=== PATIENT | female | born 1960 | race Caucasian/White ===

== ENCOUNTER 2016-11-26 18:51 | Emergency (ER) | payer MEDICARE ==
[~2016-11-26] VITALS: Ht 152.4 cm; Wt 65.9 kg
[~2016-11-26 18:51] MED LIST: BACL10TA PO; BISA10SU61 RC; ESTR2TAB2 PO; FURO-128 PO; GABA-502 PO; IBUP800T28 PO; LEVO100T97 PO; OXYC-284 PO; POTA-62 PO; PRAM0.252 PO; PROZ20 PO; SIMV40TA5 PO; [UNRECOGNIZED DRUG - CODE] SQ
[2016-11-26 18:58] VITALS: BP 121/76; PULSE 63; RESP 15; O2SAT 98
[2016-11-27] MEDS ORDERED: OXYC-407 PO (08:29)
[2016-11-27] MEDS ORDERED: BUPR100T8 PO (08:31)
[2016-11-27] MEDS ORDERED: DEXT10TA23 PO (08:31)
== END 2016-11-26 22:15 | disposition left against medical advice (07) ==
LOC: SED 18:51
DX: Z53.21 Procedure and treatment not carried out due to patient leaving prior to being seen by health care provider (principal)

== ENCOUNTER 2016-11-27 00:28 | Observation (INO) | payer MEDICARE ==
[~2016-11-27] VITALS: Ht 152.4 cm; Wt 67.0 kg
[2016-11-27] VITALS (11 sets, daily range): BP systolic 106–149; BP diastolic 66–81; PULSE 51–63; RESP 15–17; O2SAT 94–98
[2016-11-27 00:55] LABS: BASOPHILS % (AUTO) 0.3 % (0-3); EOSINOPHILS % (AUTO) 5.9 % (0-5); MONOCYTES % (AUTO) 11.4 % (4-12); Mean Corpuscular Hemoglobin 30.5 pg (27.0-35.0); Mean Corpuscular Volume 87.1 fL (81-100); NEUTROPHILS % (AUTO) 36.3 % (40-74); Platelet Count 311 bil/L (150-400)
--- NOTE | 2016-11-27 02:01 | ED.REPORT ---
HPI-General Illness Date of Service Nov 27, 2016 ED Provider: Doc,Ed MD Nursing Notes Stated Complaint: DIZZINESS Chief Complaint: General Complaint Allergies: Coded Allergies: Penicillins (Verified Allergy, Unknown, HIVES,HEADACHE, 05/10/14) meperidine HCl (Verified Allergy, Unknown, 05/10/14) Scheduled Baclofen (Baclofen) 10 Mg Tablet 10 MG PO 1 in am,2 in pm,3@hs Estradiol (Estradiol) 2 Mg Tablet 2 MG PO DAILY Fluoxetine (Prozac) 20 Mg Cap 20 MG PO DAILY take 20mg in the afternoon and 20mg at bedtime for a total of 40mg Gabapentin (Gabapentin) 300 Mg Capsule 300 MG PO 1 in am,2 in pm,1@hs Interferon Beta-1B (Betaseron) 0.3 Mg Kit 0.3 MG SQ every other day Levothyroxine (Synthroid) 100 Mcg Tablet 112 MCG PO DAILY Potassium Chloride ER (Potassium Chloride ER) 20 Meq Tablet.er 20 MEQ PO BID PRN with Lasix Take when you are taking with lasix and TAKE WITH FOOD Pramipexole Dihydrochloride (Mirapex) 0.25 Mg Tablet 0.5 MG PO 2 hrs before bedtime Simvastatin (Simvastatin) 40 Mg Tablet 40 MG PO HS Scheduled PRN Bisacodyl (Dulcolax Rectal) 10 Mg Supp.rect 10 MG RC DAILY PRN PRN For Constipation Furosemide (Lasix) 40 Mg Tablet 80 MG PO PRN PRN PRN Swelling Ibuprofen (Ibuprofen) 800 Mg Tablet 800 MG PO TID PRN PRN For Pain Oxycodone HCl/Acetaminophen 5-325 (Percocet 5-325) 1 Each Tablet 2 EACH PO HS PRN PRN knee pain General Time Seen by MD: 02:00 Past Medical History Past Medical History Uterine prolapse Rheumatoid Arthritis Reports: Hyperlipidemia Smoking History Current Every Day Smoker Physical Exam Vital Signs Vital Signs Date Time Temp Pulse Resp B/P Pulse Ox O2 Delivery O2 Flow Rate FiO2 11/27/16 00:30 36.7 63 15 121/76 98 Room Air Interpretation & Diagnostics Lab Results Interpretation Result Diagram: 11/27/16 0048 11/27/16 0048 Test 11/27/16 00:48 White Blood Count 9.4th/mm3 (3.8-10.1) Red Blood Count 4.03mil/mm3 (3.90-5.20) Hemoglobin 12.3g/dL (12.0-15.6) Hematocrit 35.1% (35.0-46.0) Mean Corpuscular Volume 87.1fL (81-100) Mean Corpuscular Hemoglobin 30.5pg (27.0-35.0) Mean Corpuscular Hemoglobin Concent 35.0% (32.0-37.0) Red Cell Distribution Width 13.5% (12.3-15.4) Platelet Count 311bil/L (150-400) Neutrophils (%) (Auto) 36.3% (40-74) Lymphocytes (%) (Auto) 45.8% (14-46) Monocytes (%) (Auto) 11.4% (4-12) Eosinophils (%) (Auto) 5.9% (0-5) Basophils (%) (Auto) 0.3% (0-3) Hold Purple Top Tube Received (Received) Hold Blue Top Tube Received (Received) Sodium Level 141mEq/L (134-144) Potassium Level 2.7mEq/L (3.5-5.2) Chloride Level 104mEq/L (97-108) Carbon Dioxide Level 21mmol/L (18-29) Blood Urea Nitrogen 30mg/dL (6-24) Creatinine 1.23mg/dL (0.57-1.00) Estimat Glomerular Filtration Rate 64mL/min (>59) Glucose Level 90mg/dL (60-99) Calcium Level 8.9mg/dL (8.5-10.1) Total Bilirubin 0.2mg/dL (0.0-1.2) Aspartate Amino Transf (AST/SGOT) 14U/L (0-50) Alanine Aminotransferase (ALT/SGPT) 28U/L (0-32) Alkaline Phosphatase 108U/L (25-150) Total Protein 7.3g/dL (6.4-8.4) Albumin 3.9g/dL (3.4-5.0) Hold [place] Top Tube Received (Received) Hold [place] Top Tube Received (Received) Discharge & Departure Referrals: Radha Cee MD (PCP) Reymundo Magdaleno DO Nov 27, 2016 02:01
--- NOTE | 2016-11-27 02:13 | ED.REPORT ---
HPI-General Illness Date of Service Nov 27, 2016 ED Provider: Rahul Nelson MD The pt is a 56 y/o female w/ a hx of MS presenting to the ED complaining of increasing weakness. She also reports falling and hitting her head causing her to receive a black eye. She reports being able to walk a week ago but being unable to now, as well as being more weak on the L side compared to the R. The pt is experiencing a cough that produces clear fluids but denies fever, chills, vomiting or diarrhea. Nursing Notes Stated Complaint: DIZZINESS Chief Complaint: General Complaint Nursing Notes Reviewed: Yes Allergies: Coded Allergies: Penicillins (Verified Allergy, Unknown, HIVES,HEADACHE, 05/10/14) meperidine HCl (Verified Allergy, Unknown, 05/10/14) Scheduled Baclofen (Baclofen) 10 Mg Tablet 10 MG PO 1 in am,2 in pm,3@hs Bupropion ER (Bupropion ER) 100 Mg Tablet.er 100 MG PO DAILY Dextroamphetamine/Amphetamine (Amphetamine Mixed Salts) 10 Mg Tablet 10 MG PO DAILY Estradiol (Estradiol) 2 Mg Tablet 2 MG PO DAILY Fluoxetine (Prozac) 20 Mg Cap 20 MG PO BID take 20mg in the afternoon and 20mg at bedtime for a total of 40mg Gabapentin (Gabapentin) 300 Mg Capsule 300 MG PO 1 in am,2 in pm,1@hs Interferon Beta-1B (Betaseron) 0.3 Mg Kit 0.3 MG SQ every other day Levothyroxine (Synthroid) 100 Mcg Tablet 112 MCG PO DAILY Pramipexole Dihydrochloride (Mirapex) 0.25 Mg Tablet 0.5 MG PO 2 hrs before bedtime Simvastatin (Simvastatin) 40 Mg Tablet 40 MG PO HS Scheduled PRN Bisacodyl (Dulcolax Rectal) 10 Mg Supp.rect 10 MG RC DAILY PRN PRN For Constipation Furosemide (Lasix) 40 Mg Tablet 80 MG PO PRN PRN PRN Swelling Ibuprofen (Ibuprofen) 800 Mg Tablet 800 MG PO TID PRN PRN For Pain Oxycodone HCl/Acetaminophen 5-325 (Endocet 5-325) 1 Each Tablet 2 TABLET PO HS PRN PRN For Pain General Time Seen by MD: 02:13 Chief Complaint Weakness Hx Obtained From: Patient Sudden in Onset?: Yes Onset Occurred: 1 week ago Symptom Duration: Since onset Recent Healthcare: No recent hospitalization, Recent doctor visit Similar Sx Previous: Yes Past Medical History Past Medical History Uterine prolapse Rheumatoid Arthritis Reports: Hyperlipidemia Past Surgical History None reported Smoking History Current Every Day Smoker Ambulatory Status Independent Review of Systems Bruising around L eye Full Review of Systems Respiratory: Reports: Prod cough, clear GI: Denies: Diarrhea, Vomiting Neurologic: Reports: Weakness (L worse than R ) Physical Exam Vital Signs Vital Signs Date Time Temp Pulse Resp B/P Pulse Ox O2 Delivery O2 Flow Rate FiO2 11/27/16 00:30 36.7 63 15 121/76 98 Room Air Initial VS: Reviewed Head / Eyes: Atraumatic, Normocephalic, PERRL ENT: Mucous membranes moist, Conjunctiva normal, No scleral icterus Neck: Supple, Non-tender, Full range of motion Cardiovascular: Regular rate & rhythm, Heart sounds normal, Intact distal pulses Abdomen / GI: Soft, Non-tender, No guarding, No rebound, No distention Extremities: Vascular intact, Neuro intact, No swelling, No tenderness Skin: Warm, Dry, No cyanosis General/Constitutional: Awake, Alert Appearance / Presentation: Positive: Ill appearing/not toxic Respiratory / Chest: Breath sounds NL, Breath sounds = bilat Poor respiratory effort generally Neurologic: Oriented X3, Speech NL Mild L weakness compared to R Interpretation & Diagnostics Lab Results Interpretation Result Diagram: 11/27/16 0048 11/27/16 0048 Test 11/27/16 00:48 White Blood Count 9.4th/mm3 (3.8-10.1) Red Blood Count 4.03mil/mm3 (3.90-5.20) Hemoglobin 12.3g/dL (12.0-15.6) Hematocrit 35.1% (35.0-46.0) Mean Corpuscular Volume 87.1fL (81-100) Mean Corpuscular Hemoglobin 30.5pg (27.0-35.0) Mean Corpuscular Hemoglobin Concent 35.0% (32.0-37.0) Red Cell Distribution Width 13.5% (12.3-15.4) Platelet Count 311bil/L (150-400) Neutrophils (%) (Auto) 36.3% (40-74) Lymphocytes (%) (Auto) 45.8% (14-46) Monocytes (%) (Auto) 11.4% (4-12) Eosinophils (%) (Auto) 5.9% (0-5) Basophils (%) (Auto) 0.3% (0-3) Hold Purple Top Tube Received (Received) Hold Blue Top Tube Received (Received) Sodium Level 141mEq/L (134-144) Potassium Level 2.7mEq/L (3.5-5.2) Chloride Level 104mEq/L (97-108) Carbon Dioxide Level 21mmol/L (18-29) Blood Urea Nitrogen 30mg/dL (6-24) Creatinine 1.23mg/dL (0.57-1.00) Estimat Glomerular Filtration Rate 64mL/min (>59) Glucose Level 90mg/dL (60-99) Calcium Level 8.9mg/dL (8.5-10.1) Magnesium Level 2.4mg/dL (1.6-2.6) Total Bilirubin 0.2mg/dL (0.0-1.2) Aspartate Amino Transf (AST/SGOT) 14U/L (0-50) Alanine Aminotransferase (ALT/SGPT) 28U/L (0-32) Alkaline Phosphatase 108U/L (25-150) Total Protein 7.3g/dL (6.4-8.4) Albumin 3.9g/dL (3.4-5.0) Hold [place] Top Tube Received (Received) Hold [place] Top Tube Received (Received) X-Ray Chest Interpretation Chest Xray Interpretation: Impression: No acute findings View: Portable, 1 view Interpretation / Wet Read by: Wet read ED physician CT Head Interpretation COnclusion: Chronic L basal ganglia encephalomalacia. Otherwise normal exam. No acute intracranial abnormality. This report was transmitted to the emergency room at 11/27/16 - 3:07:41 AM PDT. Study: Head CT no contrast Interpretation / Wet Read by: Interpret - Radiologist Re-Eval/Medical Decision Med Decision/Clinical Course 56-year-old multiple sclerosis presents with increasing weakness on the left side, loss of ambulation, and incidental hypokalemia. She has had hypokalemia in the past. She is unable ambulate at this point and is admitted for evaluation including MR of the brain this morning. Oral supplementation of potassium preferred to avoid burning her veins out, as her level is low but certainly not critically so. Transported in stable condition. Source of Hx: Old records Consultation : Referral / Consult Name: Ruthann Mahoney MD Consulted With: Hospitalist Call Returned at: 03:00 Manager Of Product: Will see patient, Agrees with eval, Agrees with plan, Accepts admit Counseled Regarding: Diagnosis, Lab results, Need for admission Discharge & Departure Primary Impression: Multiple falls Additional Impressions: Weakness Hypokalemia Exacerbation of multiple sclerosis Disposition: ADMITTED TO HOSPITAL Discharge Condition All VS Reviewed: Yes Condition: Stable Referrals: Radha Cee MD (PCP) Scrib[facility] Attestation Portions of this note were transcribed by Michael Carmichael. I, Dr. Nelson personally performed the history, physical exam and medical decision-making; I reviewed and confirmed the accuracy of the information in the transcribed note. Signed by : Dyan Blair, 11/27/16 and 0324. copies to: Radha Cee MD, Christopher W MD Nov 27, 2016 02:13 Michael Carmichael Nov 27, 2016 03:21
[2016-11-27] MEDS ORDERED: Potassium Chloride 20 mEq SR Tablet PO ONE (02:35)
[2016-11-27] MEDS ORDERED: Ondansetron 2 mg/mL 2 mL Inj IVPUSH PRN (03:45)
[2016-11-27] MEDS ORDERED: Potassium Chloride Inj 20 MEQ in Dextrose 5% 250 ML IV ONE (03:45)
[2016-11-27] MEDS ORDERED: Alum-Mag Hydrox-Simeth 30 mL Suspension PO PRN (03:45)
[2016-11-27] MEDS ORDERED: Polyethylene Glycol (PEG) 17 Gm Powder PO PRN (03:45)
--- NOTE | 2016-11-27 03:58 | PCM.HPMED ---
Subjective Date of Service Nov 27, 2016 Primary Provider: Admitting Physician: Primary Care Physician: Radha Cee MD Attending Physician: Admit Status: From the Emergency Department, Full Admit, Non-Telemetry Chief Complaint: Increasing weakness with history of multiple sclerosis History of Present Illness: This 56-year-old female who has a history of MS and has been having increasing weakness over the past several weeks. Weaker on the left than the right. She notes that she has been off falling because of this. She does live with her but is unable to get around at this point in time. Her neurologist is Dr. Mandie Hernández. Patient was also found to have low potassium at 2.7. She also had CT of head without contrast which revealed chronic left basal ganglia encephalomalacia otherwise no acute intracranial abnormalities. Review of Systems: Denies chest pain denies any fevers or chills. All other review of systems are reviewed and are negative except for as in history of present illness. Allergies Coded Allergies: Penicillins (Verified Allergy, Unknown, HIVES,HEADACHE, 05/10/14) meperidine HCl (Verified Allergy, Unknown, 05/10/14) Home Medications Scheduled Baclofen (Baclofen) 10 Mg Tablet 10 MG PO 1 in am,2 in pm,3@hs Estradiol (Estradiol) 2 Mg Tablet 2 MG PO DAILY Fluoxetine (Prozac) 20 Mg Cap 20 MG PO DAILY take 20mg in the afternoon and 20mg at bedtime for a total of 40mg Gabapentin (Gabapentin) 300 Mg Capsule 300 MG PO 1 in am,2 in pm,1@hs Interferon Beta-1B (Betaseron) 0.3 Mg Kit 0.3 MG SQ every other day Levothyroxine (Synthroid) 100 Mcg Tablet 112 MCG PO DAILY Potassium Chloride ER (Potassium Chloride ER) 20 Meq Tablet.er 20 MEQ PO BID PRN with Lasix Take when you are taking with lasix and TAKE WITH FOOD Pramipexole Dihydrochloride (Mirapex) 0.25 Mg Tablet 0.5 MG PO 2 hrs before bedtime Simvastatin (Simvastatin) 40 Mg Tablet 40 MG PO HS Scheduled PRN Bisacodyl (Dulcolax Rectal) 10 Mg Supp.rect 10 MG RC DAILY PRN PRN For Constipation Furosemide (Lasix) 40 Mg Tablet 80 MG PO PRN PRN PRN Swelling Ibuprofen (Ibuprofen) 800 Mg Tablet 800 MG PO TID PRN PRN For Pain Oxycodone HCl/Acetaminophen 5-325 (Percocet 5-325) 1 Each Tablet 2 EACH PO HS PRN PRN knee pain PMH Past Medical History Past Medical History Uterine prolapse Rheumatoid Arthritis Reports: Hyperlipidemia Past Surgical History None reported Family History She denies any familial history of MS. Social History Hx Alcohol Use: No Hx Substance Use: No Smoking Status: Current Every Day Smoker Living Arrangement: with Family Exam Vital Signs Vital Sign - Last Date Time Temp Pulse Resp B/P Pulse Ox O2 Delivery O2 Flow Rate FiO2 11/27/16 00:30 36.7 63 15 121/76 98 Room Air Exam Constitutional: Slightly disheveled female who is slightly drowsy Head: Slight contusion on her left orbital area Eyes: PERRLA DC EOMI mouth dry mucosa neck no adenopathy chest clear to auscultation Cor: Regular rate and rhythm S1-S2 without murmur Abdomen: Soft nontender bowel sounds present Extremities: Trace bilateral pedal edema Skin: No rashes Psych: Blunted affect Neuro: Alert and oriented 3. Lower extremities are 4 over 5 strength. Gait not tested. Lab and Diagnostics Labs Laboratory Tests 72 Hours Test 11/27/16 00:48 White Blood Count 9.4th/mm3 (3.8-10.1) Red Blood Count 4.03mil/mm3 (3.90-5.20) Hemoglobin 12.3g/dL (12.0-15.6) Hematocrit 35.1% (35.0-46.0) Mean Corpuscular Volume 87.1fL (81-100) Mean Corpuscular Hemoglobin 30.5pg (27.0-35.0) Mean Corpuscular Hemoglobin Concent 35.0% (32.0-37.0) Red Cell Distribution Width 13.5% (12.3-15.4) Platelet Count 311bil/L (150-400) Neutrophils (%) (Auto) 36.3% (40-74) Lymphocytes (%) (Auto) 45.8% (14-46) Monocytes (%) (Auto) 11.4% (4-12) Eosinophils (%) (Auto) 5.9% (0-5) Basophils (%) (Auto) 0.3% (0-3) Hold Purple Top Tube Received (Received) Hold Blue Top Tube Received (Received) Sodium Level 141mEq/L (134-144) Potassium Level 2.7mEq/L (3.5-5.2) Chloride Level 104mEq/L (97-108) Carbon Dioxide Level 21mmol/L (18-29) Blood Urea Nitrogen 30mg/dL (6-24) Creatinine 1.23mg/dL (0.57-1.00) Estimat Glomerular Filtration Rate 64mL/min (>59) Glucose Level 90mg/dL (60-99) Calcium Level 8.9mg/dL (8.5-10.1) Magnesium Level 2.4mg/dL (1.6-2.6) Total Bilirubin 0.2mg/dL (0.0-1.2) Aspartate Amino Transf (AST/SGOT) 14U/L (0-50) Alanine Aminotransferase (ALT/SGPT) 28U/L (0-32) Alkaline Phosphatase 108U/L (25-150) Total Protein 7.3g/dL (6.4-8.4) Albumin 3.9g/dL (3.4-5.0) Hold [place] Top Tube Received (Received) Hold [place] Top Tube Received (Received) Result Diagram: 11/27/16 0048 11/27/16 0048 Assessment & Plan #MS exacerbation, present on admission, subacute -Check MRI of brain with contrast -PT OT and social work program coordinator consultation -WILL NEED TO CONTACT NEUROLOGY FOR CONSULT IN AM #Hypokalemia, acute, present on admission -Replete with IV potassium rider was 20 mEq and also replete with IV fluids normal saline with 20 mEq per liter of KCl. #Depression, chronic, present on admission -Continue home medication regimen #Hypothyroidism, chronic -Continue home medication regimen #DVT prophylaxis -Subcutaneous prophylactic Lovenox #CODE STATUS -Patient is full code VTE Prophylaxis: Sub-Q Enoxaparin Resuscitation Status: CPR: Attempt Resuscitation Time spent 60 minutes Ruthann Mahoney MD Nov 27, 2016 03:58
[2016-11-27] MEDS ORDERED: oxyCODONE-Acetamin 5-325 mg Tablet PO PRN (04:00)
[2016-11-27] MEDS ORDERED: Potassium Chloride 20 mEq SR Tablet PO PRN (04:20)
[2016-11-27] MEDS: 0.9% NaCl + KCl 20 mEq/L 1,000 ML IV SCH ×2 (06:29→17:53)
--- NOTE | 2016-11-27 06:31 | NUR ---
Admit Pt arrived to [facility] via ED @ 0545. Pt able to walk to bathroom with 1PA. Pt A&O x3 and able to PRADO admission completed but not med rec. Pt c/o of headache 12/23, 650 PRN Tylenol given and effective, pt able to rest. Pt started on NS with 20 mEq of K+20. VSS.
[2016-11-27] MEDS ORDERED: OXYC-407 PO (08:29)
[2016-11-27] MEDS ORDERED: BUPR100T8 PO (08:31)
[2016-11-27] MEDS ORDERED: DEXT10TA23 PO (08:31)
--- NOTE | 2016-11-27 11:49 | DRSVH ---
PROCEDURE: X-RAY CHEST ONE VIEW, PORTABLE ([id number]) INDICATIONS: cough, MULTIPLE SCLEROSIS TECHNIQUE: One view of the chest was acquired. COMPARISON: [facility], , CHEST 1VW (PORTABLE), 11/07/2013, 10:06. FINDINGS: Surgical changes and devices: None. Lungs and pleura: No pleural effusions or pneumothorax. Since the previous x-ray in 2013 is suggesti on of some patchy infiltrate in the right base consistent with pneumonia. Mediastinum: Mediastinal contours appear normal. Heart size is normal. Bones and chest wall: No suspicious bony lesions. Overlying soft tissues appear unremarkable. IMPRESSION: Right lower lobe pneumonia is thought to be present. Dictated by: Juan Perez M.D. on 11/27/2016 at 11:46 Approved by: Juan Perez M.D. on 11/27/2016 at 11:46
--- NOTE | 2016-11-27 11:50 | DRSVH ---
PROCEDURE: CT BRAIN WITHOUT CONTRAST ([id number]) INDICATIONS: MS, mult falls TECHNIQUE: Noncontrast 4.5 mm thick angled axial sections acquired from the foramen magnum to the vertex, with c oronal reformats. COMPARISON: [facility], CT, BRAIN W/O CONTRAST, 11/07/2013, 10:34. FINDINGS: Image quality: Excellent. CSF spaces: Basal cisterns are patent. No extra-axial fluid collections. Ventricles are normal in size and shape. Brain: No midline shift. No intracranial masses or hemorrhage. Vasques-white matter interface is norm al. Since the previous CT there is developing moderate sized lacunar type infarct in the left basal g anglia approximately 16 x 6 mm size. Skull and face: Calvarium and visualized facial bones are intact, without suspicious lesions. Sinuses: Visualized sinuses and mastoids are clear. IMPRESSION: 1. No acute intracranial abnormality. 2. Since the previous study there is now a moderate-sized lacunar infarct in the left basal ganglia. Dictated by: Juan Perez M.D. on 11/27/2016 at 11:47 Approved by: Juan Perez M.D. on 11/27/2016 at 11:48
--- NOTE | 2016-11-27 11:52 | DRSVH ---
PROCEDURE: MRI MULTIPLE SCLEROSIS BRAIN WITH AND WITHOUT CONTRAST ([id number]) INDICATIONS: MS exacerbation TECHNIQUE: Noncontrast sagittal and axial FLAIR, axial and coronal T2 fast spin echo, axial VIBE, axial gradient echo, axial diffusion and ADC through the brain. After the administration of contrast, axial and co michel VIBE with fat saturation through the brain. COMPARISON: [facility], CT, CT BRAIN WO CON, 11/27/2016, 2:54. [facility], M R, MR MS BRAIN W&WO CON, 08/30/2016, 20:25. FINDINGS: Image quality: Excellent. CSF spaces: Ventricles are normal in size and shape. Basal cisterns are patent. No extra-axial flu id collections. Brain: No intracranial mass effects. Vasques-white matter interface appears intact. No new suspicious white matter lesions are found, and there is no sign of abnormal enhancement associated with these a reas of elevated T2/flair signal seen within the corpus callosum, periventricular white matter, and w ithin the subcortical white matter. No mass lesion is present, no hemorrhage is found. No abnormal intracranial enhancement. Diffusion weighted images show no acute ischemic insults, and stable appea ring encephalomalacia within the douglas radiata of the left hemisphere is again seen. Brainstem appe ars normal. Normal intravascular flow voids are present. Skull and face: Calvarial marrow signal is normal. Orbits appear normal. Sinuses: Sinuses and mastoids are clear. IMPRESSION: The brain MRI without and with contrast shows no evidence of acute disease. No stroke o r new white matter lesion is found. No abnormal area of enhancement or evidence of hemorrhage is see n. Source of new symptoms therefore is not identified. Old area of encephalomalacia within the coby na radiata of the left hemisphere is likely secondary to a prior chronic stroke but this has not amin ged in appearance over time. Dictated by: Jerald Moon M.D. on 11/27/2016 at 11:45 Approved by: Jerald Moon M.D. on 11/27/2016 at 11:50
[2016-11-27 13:30] LABS: APPEARANCE,URINE CLEAR (CLEAR,HAZY); COLOR,URINE YELLOW (YELLOW); OCCULT BLOOD,URINE NEGATIVE (NEGATIVE); UROBILINOGEN,URINE NORMAL (NORMAL)
--- NOTE | 2016-11-27 14:26 | NUR ---
STEWART explained to pt and her who is at bedside. STEWART signed, copy of STEWART and Medicare self administered medication information given to pt.
--- NOTE | 2016-11-27 14:35 | NUR ---
Evaluation completed. Please go to "Notes" then click on "Assessments and Notes" (bottom left corner of screen). Then select appropriate discipline tab on top of screen.
[2016-11-27] MEDS: Potassium Chloride 20 mEq SR Tablet PO SCH ×2 (15:18→21:01)
--- NOTE | 2016-11-27 21:56 | NUR ---
Discharge Patient stated she would like to be discharged in the morning. Patient was informed that she should first make sure her physician clears her to leave so that her insurance will cover her visit. Patient stated she understood and would speak with the physician prior to leaving in the morning.
--- NOTE | 2016-11-27 23:27 | PCM.PNMED ---
Subjective Date of Service Nov 27, 2016 Subjective The patient is beginning to feel a bit better. She has no new complaints. Exam Vital Signs Vital Sign - Last Date Time Temp Pulse Resp B/P Pulse Ox O2 Delivery O2 Flow Rate FiO2 11/27/16 20:45 36.7 55 16 118/73 97 Room Air Intake and Output 11/26/16 11/26/16 11/27/16 Cumulative From/Thru 15:00 23:00 07:00 11/27/16 00:30 - 11/27/16 06:17 Intake Total 260 ml 260 ml Output Total 300 ml 300 ml Balance -40 ml -40 ml Intake Oral 0 ml 0 ml IV Total 260 ml 260 ml Output Urine Total 300 ml 300 ml # Bowel Movements 0 0 Exam General: The patient is lying supine in bed with head elevated up proximal to 45 and in no apparent distress. HEENT: Head is atraumatic and normocephalic. Eyes: Pupils are equally round and reactive to light and accommodation. Extraocular muscles are intact. Sclera are white, anicteric. Subconjunctival mucosa is pink. Ears and nose are unremarkable. Oropharynx: There is no mucosal lesions, there is no thrush, there is no pharyngitis. Neck: Is supple, there are no nodes, or masses or tenderness. Chest: Is clear to auscultation and percussion. There are no rales, rhonchi, wheezes or rubs. Heart: Rate, rhythm is regular. There is no murmur, rub or gallop. Abdomen: Good bowel sounds are present. Abdomen is soft, nontender, no organomegaly or masses were appreciated. Extremities: Are symmetrical and well perfused. There is no edema, there is no cellulitis, no rash. Neurologic: There are no focal neurological deficits. Cranial nerves II through XII are intact. There are no sensory or motor deficits. There appears to be generalized weakness. Psychiatric: Patients mood is calm and shows no sign of agitation. Genital: Deferred Rectal: Deferred Lab and Diagnostics Result Diagram: 11/27/16 0048 11/27/16 1145 Microbiology Urine culture is pending X-Rays, CTs and MRIs PROCEDURE: MRI MULTIPLE SCLEROSIS BRAIN WITH AND WITHOUT CONTRAST ([id number]) INDICATIONS: MS exacerbation TECHNIQUE: Noncontrast sagittal and axial FLAIR, axial and coronal T2 fast spin echo, axial VIBE, axial gradient echo, axial diffusion and ADC through the brain. After the administration of contrast, axial and coronal VIBE with fat saturation through the brain. COMPARISON: [facility], CT, CT BRAIN WO CON, 11/27/2016, 2:54. [facility], MR, MR MS BRAIN W&WO CON, 08/30/2016, 20:25. FINDINGS: Image quality: Excellent. CSF spaces: Ventricles are normal in size and shape. Basal cisterns are patent. No extra-axial fluid collections. Brain: No intracranial mass effects. Vasques-white matter interface appears intact. No new suspicious white matter lesions are found, and there is no sign of abnormal enhancement associated with these areas of elevated T2/flair signal seen within the corpus callosum, periventricular white matter, and within the subcortical white matter. No mass lesion is present, no hemorrhage is found. No abnormal intracranial enhancement. Diffusion weighted images show no acute ischemic insults, and stable appearing encephalomalacia within the douglas radiata of the left hemisphere is again seen. Brainstem appears normal. Normal intravascular flow voids are present. Skull and face: Calvarial marrow signal is normal. Orbits appear normal. Sinuses: Sinuses and mastoids are clear. IMPRESSION: The brain MRI without and with contrast shows no evidence of acute disease. No stroke or new white matter lesion is found. No abnormal area of enhancement or evidence of hemorrhage is seen. Source of new symptoms therefore is not identified. Old area of encephalomalacia within the douglas radiata of the left hemisphere is likely secondary to a prior chronic stroke but this has not changed in appearance over time. Dictated by: Jerald Moon M.D. on 11/27/2016 at 11:45 Approved by: Jerald Moon M.D. on 11/27/2016 at 11:50 PROCEDURE: X-RAY CHEST ONE VIEW, PORTABLE ([id number]) INDICATIONS: cough, MULTIPLE SCLEROSIS TECHNIQUE: One view of the chest was acquired. COMPARISON: [facility], CR, CHEST 1VW (PORTABLE), 11/07/2013, 10:06. FINDINGS: Surgical changes and devices: None. Lungs and pleura: No pleural effusions or pneumothorax. Since the previous x- ray in 2013 is suggestion of some patchy infiltrate in the right base consistent with pneumonia. Mediastinum: Mediastinal contours appear normal. Heart size is normal. Bones and chest wall: No suspicious bony lesions. Overlying soft tissues appear unremarkable. IMPRESSION: Right lower lobe pneumonia is thought to be present. Dictated by: Juan Perez M.D. on 11/27/2016 at 11:46 Approved by: Juan Perez M.D. on 11/27/2016 at 11:46 Assessment & Plan This is a 56-year-old female who has a history of MS and has been having increasing weakness over the past several weeks. Weaker on the left than the right. She notes that she has been off falling because of this. She does live with her but is unable to get around at this point in time. Her neurologist is Dr. Mandie Hernández. Patient was also found to have low potassium at 2.7. She also had CT of head without contrast which revealed chronic left basal ganglia encephalomalacia otherwise no acute intracranial abnormalities. # MS exacerbation, present on admission, subacute -MRI of brain with contrast shows no acute lesions. -PT AND OT and social group worker consultation -Patient feels improved and wants to go home. #Hypokalemia, acute, present on admission -Replete with IV potassium rider was 20 mEq and also replete with IV fluids normal saline with 20 mEq per liter of KCl. Potassium is still not corrected well enough to be safe for discharge. We will continue to correct patient's potassium prior to discharge #Depression, chronic, present on admission -Continue home medication regimen #Hypothyroidism, chronic -Continue home medication regimen #DVT prophylaxis -Subcutaneous prophylactic Lovenox #CODE STATUS -Patient is full code Disposition: The patient will need to be here for another 24 hours for continued evaluation and treatment of the above medical problems. Pain Evaluation: Adequate Pain Control VTE Prophylaxis: Sub-Q Enoxaparin VTE Mechanical Devices: Intermittant Pneumatic CD Resuscitation Status: CPR: Attempt Resuscitation Rahul Jarvis MD Nov 27, 2016 23:26
[2016-11-28 00:50] VITALS: BP 120/71; PULSE 63; RESP 20; O2SAT 96
[2016-11-28] MEDS: 0.9% NaCl + KCl 20 mEq/L 1,000 ML IV SCH ×2 (05:08→09:45)
[2016-11-28 05:30] VITALS: PULSE 58
[2016-11-28 06:13] VITALS: BP 125/76; PULSE 64; RESP 20; O2SAT 96
[2016-11-28 06:14] LABS: BASOPHILS % (AUTO) 0.1 % (0-3); EOSINOPHILS % (AUTO) 5.5 % (0-5); Mean Corpuscular Hemoglobin 30.2 pg (27.0-35.0); Mean Corpuscular Volume 88.1 fL (81-100); Platelet Count 280 bil/L (150-400)
[2016-11-28] MEDS: Potassium Chloride 20 mEq SR Tablet PO SCH (07:53)
[2016-11-28 08:21] VITALS: BP 130/73; PULSE 62; RESP 15; O2SAT 98
[2016-11-28] MEDS ORDERED: INTERFERON BETA 0.3 MG SUBQ SCH (09:00)
[2016-11-28] MEDS ORDERED: Potassium Chloride 20 mEq SR Tablet PO ONE (10:45)
--- NOTE | 2016-11-28 11:17 | NUR ---
Social Work: Initial Assessment/Discharge/Multi-Disciplinary Rounds D: EMR reviewed. Pt is a 56 y/o female admitted for multiple falls, weakness, ad hypokalemia related to MS per H&P. SW met with pt and spouse at bedside to conduct initial assessment. Pt was alert and oriented x3. SW explained role and wrote phone number on white board. SW provided "Your Discharge Planning Checklist" and encouraged pt to review and call SW for any discharge planning questions. SW provided DPOA/advanced directive ppw and encouraged pt to provide a copy to the hospital once complete. Pt's insurance is Medicarel. PCP is Radha Cee MD. Pt gave verbal consent to contact spouse, Sebastian Case [phone] for discharge planning. Pt does not own or use any DME. Pt is independent with ADLs. Pt drives. Pt is independent at baseline. Pt lives with spouse in a single-story home with 4 steps to enter [facility]. Pt's spouse stated he will provide transport home via POV at time of discharge. Per MD in AM rounds, pt is medically stable and likely to discharge today. MD/RN did not identify any SW discharge needs. SW did not identify any discharge needs. Based on assessment and multi-disciplinary rounds, SW does not have any concerns regarding pt's capacity for self-care once discharged. Per PT, pt is ambulating independently and recommends outpt PT if pt continues to struggle with weakness related to MS. SW asked if pt felt safe at home or if pt felt she needed any DME to assist with ambulation due to hx of falls and weakness. Pt stated she handles her MS just find and has grab bars around the home. Pt stated she does not need any DME to assist with ambulation. Pt's spouse stated pt is just fine at home and is managing her MS fine. Based on pt's assessment, SW does not have concerns for capacity for self-care at home. Pt declined needed any DME to assist with ambulation due to weakness and falls related to MS. Pt declined having any SW discharge needs. A: Pt who is independent at baseline. P: Pt's spouse stated he will provide transport home via POV at time of discharge. Pt stated she does not need any DME to assist with ambulation. Pt's spouse stated pt is just fine at home and is managing her MS fine. Based on pt's assessment, SW does not have concerns for capacity for self-care at home. Pt declined needed any DME to assist with ambulation due to weakness and falls related to MS. Pt declined having any SW discharge needs. BEBETO Escobar Addendum: 11/28/16 at 1411 by JW KAPADIA SS Amended: Links added.
--- NOTE | 2016-11-28 12:05 | PCM.DIMED ---
Discharge Instructions Date of Service Nov 28, 2016 Dates of Hospitalization Nov 27, 2016 at 04:39 Discharge Diagnosis Discharge Diagnosis Weakness and hypokalemia with multiple sclerosis Diet Discharge Diet: Heart Healthy Activity Discharge Activity: No restrictions (The patient may return to her usual activities gradually as tolerated.) Call your provider Call your provider for: Fever or Chills, Shortness of breath, Bleeding, Chest pain, Vomitting, Excessive diarrhea, Weakness (unilateral) Patient Instructions Follow-up Provider: Radha Cee MD Follow-up with PCP in: 1 week Rahul Jarvis MD Nov 28, 2016 12:05
[2016-11-28] MEDS ORDERED: FURO-128 PO (12:08)
[2016-11-28] MEDS ORDERED: POTA20TA16 PO (12:08)
--- NOTE | 2016-11-28 23:52 | PCM.DC.MED ---
Discharge Summary Date of Service Nov 28, 2016 Dates of Hospitalization Date of Hospital Admission Nov 27, 2016 at 04:39 Date of Discharge: Nov 28, 2016 Providers: Admitting Physician: Ruthann Mahoney MD Primary Care Physician: Radha Cee MD Attending Physician: Rahul Jarvis MD Diagnosis at Time of Discharge Diagnosis at Time of Discharge Weakness and hypokalemia with multiple sclerosis Procedures XRay, CTs & MRIs PROCEDURE: MRI MULTIPLE SCLEROSIS BRAIN WITH AND WITHOUT CONTRAST ([id number]) INDICATIONS: MS exacerbation TECHNIQUE: Noncontrast sagittal and axial FLAIR, axial and coronal T2 fast spin echo, axial VIBE, axial gradient echo, axial diffusion and ADC through the brain. After the administration of contrast, axial and coronal VIBE with fat saturation through the brain. COMPARISON: [facility], CT, CT BRAIN WO CON, 11/27/2016, 2:54. [facility], MR, MR MS BRAIN W&WO CON, 08/30/2016, 20:25. FINDINGS: Image quality: Excellent. CSF spaces: Ventricles are normal in size and shape. Basal cisterns are patent. No extra-axial fluid collections. Brain: No intracranial mass effects. Vasques-white matter interface appears intact. No new suspicious white matter lesions are found, and there is no sign of abnormal enhancement associated with these areas of elevated T2/flair signal seen within the corpus callosum, periventricular white matter, and within the subcortical white matter. No mass lesion is present, no hemorrhage is found. No abnormal intracranial enhancement. Diffusion weighted images show no acute ischemic insults, and stable appearing encephalomalacia within the douglas radiata of the left hemisphere is again seen. Brainstem appears normal. Normal intravascular flow voids are present. Skull and face: Calvarial marrow signal is normal. Orbits appear normal. Sinuses: Sinuses and mastoids are clear. IMPRESSION: The brain MRI without and with contrast shows no evidence of acute disease. No stroke or new white matter lesion is found. No abnormal area of enhancement or evidence of hemorrhage is seen. Source of new symptoms therefore is not identified. Old area of encephalomalacia within the douglas radiata of the left hemisphere is likely secondary to a prior chronic stroke but this has not changed in appearance over time. Dictated by: Jerald Moon M.D. on 11/27/2016 at 11:45 Approved by: Jerald Moon M.D. on 11/27/2016 at 11:50 PROCEDURE: X-RAY CHEST ONE VIEW, PORTABLE ([id number]) INDICATIONS: cough, MULTIPLE SCLEROSIS TECHNIQUE: One view of the chest was acquired. COMPARISON: [facility], CR, CHEST 1VW (PORTABLE), 11/07/2013, 10:06. FINDINGS: Surgical changes and devices: None. Lungs and pleura: No pleural effusions or pneumothorax. Since the previous x- ray in 2013 is suggestion of some patchy infiltrate in the right base consistent with pneumonia. Mediastinum: Mediastinal contours appear normal. Heart size is normal. Bones and chest wall: No suspicious bony lesions. Overlying soft tissues appear unremarkable. IMPRESSION: Right lower lobe pneumonia is thought to be present. Dictated by: Juan Perez M.D. on 11/27/2016 at 11:46 Approved by: Juan Perez M.D. on 11/27/2016 at 11:46 Brief History This 56-year-old female who has a history of MS and has been having increasing weakness over the past several weeks. Weaker on the left than the right. She notes that she has been off falling because of this. She does live with her but is unable to get around at this point in time. Her neurologist is Dr. Mandie Hernández. Patient was also found to have low potassium at 2.7. She also had CT of head without contrast which revealed chronic left basal ganglia encephalomalacia otherwise no acute intracranial abnormalities. Hospital Course This is a 56-year-old female who has a history of MS and has been having increasing weakness over the past several weeks. Weaker on the left than the right. She notes that she has been off falling because of this. She does live with her but is unable to get around at this point in time. Her neurologist is Dr. Mandie Hernández. Patient was also found to have low potassium at 2.7. She also had CT of head without contrast which revealed chronic left basal ganglia encephalomalacia otherwise no acute intracranial abnormalities. # MS exacerbation, present on admission, subacute -MRI of brain with contrast shows no acute lesions. -PT AND OT and healthcare social worker consultation -Patient feels improved and wants to go home. #Hypokalemia, acute, present on admission -Replete with IV potassium rider was 20 mEq and also replete with IV fluids normal saline with 20 mEq per liter of KCl. Potassium is still not corrected well enough to be safe for discharge. We will continue to correct patient's potassium prior to discharge #Depression, chronic, present on admission -Continue home medication regimen #Hypothyroidism, chronic -Continue home medication regimen #DVT prophylaxis -Subcutaneous prophylactic Lovenox #CODE STATUS -Patient is full code Disposition: The patient will need to be here for another 24 hours for continued evaluation and treatment of the above medical problems. Exam Vital Signs (Last) Date Time Temp Pulse Resp B/P Pulse Ox O2 Delivery O2 Flow Rate FiO2 11/28/16 11:38 Room Air 11/28/16 08:21 36.5 62 15 130/73 98 Exam General: The patient is lying supine in bed with head elevated up proximal to 45 and in no apparent distress. HEENT: Head is atraumatic and normocephalic. Eyes: Pupils are equally round and reactive to light and accommodation. Extraocular muscles are intact. Sclera are white, anicteric. Subconjunctival mucosa is pink. Ears and nose are unremarkable. Oropharynx: There is no mucosal lesions, there is no thrush, there is no pharyngitis. Neck: Is supple, there are no nodes, or masses or tenderness. Chest: Is clear to auscultation and percussion. There are no rales, rhonchi, wheezes or rubs. Heart: Rate, rhythm is regular. There is no murmur, rub or gallop. Abdomen: Good bowel sounds are present. Abdomen is soft, nontender, no organomegaly or masses were appreciated. Extremities: Are symmetrical and well perfused. There is no edema, there is no cellulitis, no rash. Neurologic: There are no focal neurological deficits. Cranial nerves II through XII are intact. There are no sensory or motor deficits. The patient is stronger today and ambulated with physical therapy without difficulty. Psychiatric: Patients mood is calm and shows no sign of agitation. Genital: Deferred Rectal: Deferred Test 11/27/16 00:48 11/27/16 12:40 11/28/16 05:28 Hold Purple Top Tube Received (Received) Hold Blue Top Tube Received (Received) Hold [place] Top Tube Received (Received) Hold [place] Top Tube Received (Received) Urine Color Yellow (YELLOW) Urine Appearance Clear (CLEAR,HAZY) Urine pH 6.0 (5.0-8.0) Urine Specific [place] 1.010 (1.003-1.035) Urine Protein Tracemg/dL (NEG,TRACE) Urine Glucose (UA) Negativemg/dL (NEGATIVE) Urine Ketones Negativemg/dL (NEGATIVE) Urine Occult Blood Negative (NEGATIVE) Urine Nitrite Negative (NEGATIVE) Urine Bilirubin Negative (NEGATIVE) Urine Urobilinogen Normalmg/dL (NORMAL) Urine Leukocyte Esterase Trace (NEGATIVE) Urine RBC 0-2/hpf (0-2) Urine WBC 0-5/hpf (0-5) Urine Epithelial Cells Moderate/hpf (NONE-MOD) Urine Crystals None seen (NONE SEEN) Urine Bacteria None/hpf (NONE-FEW) Urine Hyaline Casts None/lpf (NONE) Urine Granular Casts None seen (NONE SEEN) Urine Waxy Casts None seen (NONE SEEN) Urine Red Blood Cell Casts None seen (NONE SEEN) Urine White Blood Cell Casts None seen (NONE SEEN) Urine Mucus None seen (None Seen) Urine Trichomonas None seen (NONE SEEN) Urine Yeast None (NONE SEEN) Urinalysis Comment None Urine Culture Reflexed Indicated White Blood Count 8.4th/mm3 (3.8-10.1) Red Blood Count 3.87mil/mm3 (3.90-5.20) Hemoglobin 11.7g/dL (12.0-15.6) Hematocrit 34.1% (35.0-46.0) Mean Corpuscular Volume 88.1fL (81-100) Mean Corpuscular Hemoglobin 30.2pg (27.0-35.0) Mean Corpuscular Hemoglobin Concent 34.3% (32.0-37.0) Red Cell Distribution Width 13.8% (12.3-15.4) Platelet Count 280bil/L (150-400) Neutrophils (%) (Auto) 48.0% (40-74) Lymphocytes (%) (Auto) 38.2% (14-46) Monocytes (%) (Auto) 8.0% (4-12) Eosinophils (%) (Auto) 5.5% (0-5) Basophils (%) (Auto) 0.1% (0-3) Sodium Level 144mEq/L (134-144) Potassium Level 3.2mEq/L (3.5-5.2) Chloride Level 115mEq/L (97-108) Carbon Dioxide Level 16mmol/L (18-29) Blood Urea Nitrogen 17mg/dL (6-24) Creatinine 0.84mg/dL (0.57-1.00) Estimat Glomerular Filtration Rate 100mL/min (>59) Glucose Level 100mg/dL (60-99) Calcium Level 8.8mg/dL (8.5-10.1) Magnesium Level 2.0mg/dL (1.6-2.6) Total Bilirubin 0.2mg/dL (0.0-1.2) Aspartate Amino Transf (AST/SGOT) 11U/L (0-50) Alanine Aminotransferase (ALT/SGPT) 17U/L (0-32) Alkaline Phosphatase 91U/L (25-150) Total Protein 5.9g/dL (6.4-8.4) Albumin 3.1g/dL (3.4-5.0) Microbiology Results Urine culture is pending Discharge Medications Discharge Medications Baclofen (Baclofen) 10 Mg Tablet 10 MG PO 1 in am,2 in pm,3@hs (Reported) Bupropion ER (Bupropion ER) 100 Mg Tablet.er 100 MG PO DAILY (Reported) Dextroamphetamine/Amphetamine (Amphetamine Mixed Salts) 10 Mg Tablet 10 MG PO DAILY (Reported) Estradiol (Estradiol) 2 Mg Tablet 2 MG PO DAILY (Reported) Fluoxetine (Prozac) 20 Mg Cap 20 MG PO BID (Reported) take 20mg in the afternoon and 20mg at bedtime for a total of 40mg Gabapentin (Gabapentin) 300 Mg Capsule 300 MG PO 1 in am,2 in pm,1@hs (Reported ) Interferon Beta-1B (Betaseron) 0.3 Mg Kit 0.3 MG SQ every other day (Reported) Levothyroxine (Synthroid) 100 Mcg Tablet 112 MCG PO DAILY (Reported) Potassium Chloride (Potassium Chloride) 20 Meq Tab.er.prt 20 MEQ PO DAILY Prescribed by: ADDI JARVIS MD Pramipexole Dihydrochloride (Mirapex) 0.25 Mg Tablet 0.5 MG PO 2 hrs before bedtime (Reported) Simvastatin (Simvastatin) 40 Mg Tablet 40 MG PO HS (Reported) As needed Bisacodyl (Dulcolax Rectal) 10 Mg Supp.rect 10 MG RC DAILY PRN PRN For Constipation (Reported) Furosemide (Lasix) 40 Mg Tablet 40 MG PO DAILY PRN PRN Swelling Prescribed by: ADDI JARVIS MD Ibuprofen (Ibuprofen) 800 Mg Tablet 800 MG PO TID PRN PRN For Pain (Reported) Oxycodone HCl/Acetaminophen 5-325 (Endocet 5-325) 1 Each Tablet 2 TABLET PO HS PRN PRN For Pain (Reported) Followup Plan Disposition: The patient is being discharged home in the care of her . Discharge Diet: Heart Healthy Discharge Activity: No restrictions (The patient may return to her usual activities gradually as tolerated.) Follow-up Provider: Radha Cee MD Follow-up with PCP in: 1 week Time spent Time spent on discharging this patient was greater than 35 minutes, over half of which was involved in counseling and coordination of care. Rahul Jarvis MD Nov 28, 2016 23:52
== END 2016-11-28 12:49 | disposition home or self-care (01) ==
LOC: SED 00:28 → OSC 04:39
PROVIDERS: ADMIT Specialist; ATTEND Internal Medicine Infectious Disease
DX: G35 Multiple sclerosis (principal); R53.1 Weakness; E87.6 Hypokalemia; F32.9 Major depressive disorder, single episode, unspecified; E03.9 Hypothyroidism, unspecified; E78.5 Hyperlipidemia, unspecified; M06.9 Rheumatoid arthritis, unspecified; F17.210 Nicotine dependence, cigarettes, uncomplicated; Z91.81 History of falling
CPT/HCPCS: 36415; 70450; 70553; 71010; 80048; 80053; 81000; 83735; 85025; 87086; 87088; 96365; 97116; 97162; 99285; A9585; G0378; G8978; G8979; G8980; J1650; J3480